=== PATIENT | male | born 1950 | race Caucasian/White ===

== ENCOUNTER 2016-09-22 08:34 | Day surgery (SDC) | payer OTHER ==
[~2016-09-22] VITALS: Ht 181.6 cm; Wt 86.8 kg
[2016-09-22] VITALS (8 sets, daily range): BP systolic 110–146; BP diastolic 61–82; PULSE 48–77; TEMP 97.3–98.8
[2016-09-22] MEDS ORDERED: ALTACE 10MG TAB10 MG PO (09:59)
[2016-09-22] MEDS ORDERED: HCTZ12.5TAB (10:01)
[2016-09-22] MEDS ORDERED: NORCO 325 MG-51 TAB PO (15:34)
[2016-09-22] MEDS ORDERED: SENOKOT S 50 MG1 TAB PO (15:35)
[2016-09-22] MEDS ORDERED: PYRIDIUM 100MG100 MG PO (15:35)
== END 2016-09-22 14:15 | disposition home or self-care (01) ==
LOC: SDCO 08:34
DX: C67.4 Malignant neoplasm of posterior wall of bladder (principal); I10 Essential (primary) hypertension
CPT/HCPCS: J1100; J2250; J2405; J2704; J3010; J7120; Q9967